=== PATIENT | male | born 1955 | race Caucasian/White ===

== ENCOUNTER 2022-07-05 11:05 | Emergency (ER) | payer OTHER ==
[~2022-07-05] VITALS: Ht 177.8 cm; Wt 83.5 kg
[~2022-07-05 11:05] MED LIST: CIPR500 PO; Chantix1 MG PO; FOLI1 PO; LACT PO; Lisinopril-Hct1 EAC4 PO; METR500 PO; MULVITA PO; SERT100 PO; TRAZ150T57 PO
[2022-07-05] MEDS ORDERED: OXAYDO5 M1 PO (13:04)
[2022-07-05] MEDS ORDERED: CRUTCH2 XX (13:04)
== END 2022-07-05 13:40 | disposition home or self-care (01) ==
LOC: ER 11:05
DX: S72.492A Other fracture of lower end of left femur, initial encounter for closed fracture (principal); M97.12XA Periprosthetic fracture around internal prosthetic left knee joint, initial encounter; W19.XXXA Unspecified fall, initial encounter; I10 Essential (primary) hypertension; F17.210 Nicotine dependence, cigarettes, uncomplicated; Z79.899 Other long term (current) drug therapy
CPT/HCPCS: 73700; A9270